=== PATIENT | male | born 1950 | race Caucasian/White ===

== ENCOUNTER 2023-12-19 06:07 | Day surgery (SDC) | payer MEDICARE, OTHER ==
[2023-12-12 10:51] VITALS: BMI 27.5
[2023-12-19] MEDS ORDERED: PROPOFOL 20 ML ONE (06:13)
[2023-12-19] MEDS ORDERED: fentaNYL PF 100 MCG/2 ML SYRINGE ONE (06:13)
[2023-12-19] MEDS ORDERED: Phenylephrine 10 MG/ML VIAL ONE (06:14)
[2023-12-19] MEDS ORDERED: Dexamethasone 4 mg/ml Vial ONE (06:14)
[2023-12-19] MEDS ORDERED: Midazolam HCl 2 mg/2 ml Vial ONE (06:14)
[2023-12-19] MEDS ORDERED: Ondansetron PF 4 MG/2 ML Vial ONE (06:14)
[2023-12-19] MEDS ORDERED: Rocuronium Bromide 10 MG/ML (10ML VIAL) ONE (06:14)
[2023-12-19] MEDS ORDERED: Sodium Chloride 0.9% 250 ML 250 ML ONE (06:14)
[2023-12-19] MEDS ORDERED: Lidocaine 4% Topical Sol 50 ML BOT ONE (06:22)
[2023-12-19] MEDS ORDERED: Sodium Chloride 0.9% 100 ML ONE ×3 (06:44→11:11)
[2023-12-19] MEDS ORDERED: Tranexamic Acid 1,000 MG/10 ML VIAL ONE (06:44)
[2023-12-19] MEDS ORDERED: Vancomycin (BATCH) 1.5 GM/300 ML BAG ONE (06:45)
[2023-12-19] MEDS ORDERED: CEFAZOLIN 2 GM VIAL ONE ×2 (06:46→11:10)
[2023-12-19] MEDS ORDERED: Zolpidem Tartrate 5 MG TAB PO PRN (07:45)
[2023-12-19] MEDS ORDERED: Ropivacaine 0.2% 550 ML 550 ML NERVE BLCK SCH (07:45)
[2023-12-19] MEDS ORDERED: Promethazine HCl 25 MG/ML VIAL IM PRN ×2 (07:45→09:30)
[2023-12-19] MEDS ORDERED: Ondansetron PF 4 MG/2 ML Vial IVP PRN (07:45)
[2023-12-19] MEDS ORDERED: Lidocaine 1% (PF) 30 ML VIAL ONE (07:59)
[2023-12-19] MEDS ORDERED: Ropivacaine 0.5% HCl/PF (150 MG/30 ML VIAL) ONE (07:59)
[2023-12-19] MEDS ORDERED: Ropivacaine 0.2% HCl/PF 20 ML ONE (07:59)
[2023-12-19] MEDS ORDERED: SUGAMMADEX SODIUM 200 MG/2 ML VIAL ONE (08:21)
[2023-12-19] MEDS ORDERED: Ondansetron HCl/PF 4 MG/2 ML Vial IVP PRN (09:30)
[2023-12-19] MEDS ORDERED: Ketorolac Tromethamine 30 MG/ML VIAL IVP PRN (09:30)
[2023-12-19] MEDS ORDERED: Ketorolac Tromethamine 30 MG (1 mL) VIAL ONE (10:08)
[2023-12-19] MEDS ORDERED: Ketorolac Tromethamine 30 MG (1 mL) VIAL IVP SCH (12:00)
== END 2023-12-19 12:15 | disposition home or self-care (01) ==
LOC: SDC 06:07
PROVIDERS: ATTEND Orthopaedic Surgery
PROC: 0RRK0JZ Replacement of Left Shoulder Joint with Synthetic Substitute, Open Approach (ICD-10-PCS; principal; 2023-12-19)
PROC: 0LS40ZZ Reposition Left Upper Arm Tendon, Open Approach (ICD-10-PCS; 2023-12-19)
PROC: 3E0T3BZ Introduction of Anesthetic Agent into Peripheral Nerves and Plexi, Percutaneous Approach (ICD-10-PCS; 2023-12-19)
DX: M19.012 Primary osteoarthritis, left shoulder (principal); M75.122 Complete rotator cuff tear or rupture of left shoulder, not specified as traumatic; S43.081A Other subluxation of right shoulder joint, initial encounter; Z98.890 Other specified postprocedural states; Z79.899 Other long term (current) drug therapy; X58.XXXA Exposure to other specified factors, initial encounter
CPT/HCPCS: 23430; 23472; 64415; A4306; C1713 ×3; C1776; J1100; J1885; J2001; J2371; J2405; J2704; J2795 ×3; J3370; J7050; J2250